=== PATIENT | female | born 1980 | race Two or more races ===

== ENCOUNTER 2018-04-13 12:39 | Inpatient (IN) | payer MEDICAID ==
[2018-04-14] MEDS ORDERED: Sodium Chloride 0.9% 10 ML Syringe FLUSH PRN (02:46)
[2018-04-14] MEDS ORDERED: ceFAZolin 2 GM in Premix Bag 1 BAG IV ONE (02:46)
[2018-04-14] MEDS ORDERED: Citric Acid/Sodium Citrate Solution 30 ML Cup PO ONE (02:46)
[2018-04-14] MEDS ORDERED: Metoclopramide 10 MG/2 ML SDV IVPUSH ONE (02:46)
[2018-04-14] MEDS ORDERED: Nalbuphine 20 MG/ML 1 ML Syringe IVPUSH PRN (02:46)
[2018-04-14] MEDS ORDERED: Oxytocin/Lactated Ringers 10 UNIT/1,000 ML BAG IV SCH ×2 (03:00→10:30)
[2018-04-14] MEDS ORDERED: Oxytocin 10 Units/1 ML SDV ONE ×2 (07:42→07:44)
[2018-04-14] MEDS ORDERED: Ondansetron 4 MG/2 ML SDV ONE (07:42)
[2018-04-14] MEDS ORDERED: Ketorolac 30 MG/ML SDV ONE (07:42)
[2018-04-14] MEDS ORDERED: Lactated Ringers 2,000 ML ONE (07:42)
[2018-04-14] MEDS ORDERED: Morphine PF 1 MG/ML Amp ONE (07:42)
[2018-04-14] MEDS ORDERED: ceFAZolin 1 GM Vial ONE (07:42)
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
--- NOTE | 2018-04-14 08:09 | PCM.PREANE ---
Preanesthetic Assessment - Procedure Proposed Procedure: c section - Anesthesia/Transfusion/Family Hx Anesthesia History: Prior Anesthesia Without Reaction Family History of Anesthesia Reaction: No Transfusion History: No Prior Transfusion(s) - Review of Systems General: No Symptoms Pulmonary: No Symptoms Cardiovascular: No Symptoms Gastrointestinal: No Symptoms Neurological: No Symptoms Other: Reports: Depression, Anxiety - Physical Assessment NPO Status Date: 04/13/18 NPO Status Time: 06:00 Respiratory Rate: 18 Vital Signs: Last Vital Signs Temp 97.7 F 04/13/18 13:15 Pulse 97 04/13/18 13:15 Resp 18 04/13/18 13:15 BP 138/90 04/13/18 13:15 Pulse Ox Height: 5 ft 2 in Weight: 79.379 kg ASA Class: 2 Mental Status: Alert & Oriented x3 Airway Class: Mallampati = 1 Dentition: Reports: Normal Dentition Thyro-Mental Finger Breadths: 3 Mouth Opening Finger Breadths: 3 ROM/Head Extension: Full Lungs: Clear to Auscultation, Normal Respiratory Effort Cardiovascular: Regular Rate, Regular Rhythm - Lab Values: Laboratory Last Values Blood Type B POSITIVE 04/13/18 12:00 Gel Antibody Screen Negative 04/13/18 12:00 - Allergies Allergies/Adverse Reactions: Allergies Allergy/AdvReac Type Severity Reaction Status Date / Time No Known Allergies Allergy Verified 04/13/18 13:46 - Blood Blood Available: No - Acknowledgements Anesthesia Type Planned: Spinal Pt an Appropriate Candidate for the Planned Anesthesia: Yes Alternatives and Risks of Anesthesia Discussed w Pt/Guardian: Yes Pt/Guardian Understands and Agrees with Anesthesia Plan: Yes PreAnesthesia Questionnaire HEENT History: Reports: Other (See Below) (wears glasses) Cardiovascular History: Reports: None, Hypertension ( induced) Respiratory History: Reports: None Gastrointestinal History: Reports: GERD (with preg) ELIGIBILITY SERVICES REPRESENTATIVE History: Reports: , Spontaneous : 4 (37.2 weeks) Para: 2 Musculoskeletal History: Reports: Fibromyalgia Neurological History: Reports: Migraines Psychiatric History: Reports: Anxiety, Depression Oncologic (Cancer) History: Reports: None - Past Surgical History HEENT Surgical History: Reports: Oral Surgery Musculoskeletal Surgical History: Reports: Carpal Tunnel, Other (See Below) ( cubital surgery right) - SUBSTANCE USE Smoking Status *Q: Never Smoker Tobacco Use Within Last Twelve Months: No Second Hand Smoke Exposure: Yes Days Per Week of Alcohol Use: 0 Recreational Drug Use History: No - HOME MEDS Home Medications: Home Meds DULoxetine [Cymbalta] 60 mg PO DAILY 04/13/18 [History] PNV95/Ferrous Fumarate/FA [ Tablet] 1 tab PO DAILY 04/13/18 [History] Pregabalin [Lyrica] 300 mg PO DAILY 04/13/18 [History] - CURRENT (IN HOUSE) MEDS Current Meds: Current Medications Lactated Ringer's (Ringers, Lactated) 1,000 mls @ 125 mls/hr IV ASDIRECTED GLENNA Oxytocin/Lactated Ringer's (Pitocin In Lr 10 Units/1,000 Ml) 10 unit in 1,000 mls @ 100 mls/hr IV ASDIRECTED GLENNA Nalbuphine HCl (Nubain) 10 mg IVPUSH Q2H PRN PRN Reason: pain Sodium Chloride (Saline Flush) 10 ml FLUSH ASDIRECTED PRN PRN Reason: Keep Vein Open Discontinued Medications Cefazolin Sodium (Ancef) Confirm Administered Dose 2 gm .ROUTE .STK-MED ONE Stop: 04/14/18 07:43 Citric Acid/Sodium Citrate (Bicitra Solution) 30 ml PO ONETIME ONE Stop: 04/14/18 02:47 Cefazolin Sodium/Dextrose 2 gm (/ Premix) 50 mls @ 100 mls/hr IV ONETIME ONE Stop: 04/14/18 03:15 Lactated Ringer's (Ringers, Lactated) Confirm Administered Dose 2,000 mls @ as directed .ROUTE .STK-MED ONE Stop: 04/14/18 07:43 Ketorolac Tromethamine (Toradol) Confirm Administered Dose 30 mg .ROUTE .STK- MED ONE Stop: 04/14/18 07:43 Metoclopramide HCl (Reglan) 10 mg IVPUSH ONETIME ONE Stop: 04/14/18 02:47 Morphine Sulfate (Duramorph Pf) Confirm Administered Dose 1 mg .ROUTE .STK-MED ONE Stop: 04/14/18 07:43 Ondansetron HCl (Zofran) Confirm Administered Dose 4 mg .ROUTE .STK-MED ONE Stop: 04/14/18 07:43 Oxytocin (Pitocin) Confirm Administered Dose 10 unit .ROUTE .STK-MED ONE Stop: 04/14/18 07:43 Oxytocin (Pitocin) Confirm Administered Dose 10 unit .ROUTE .[facility]-MED ONE Stop: 04/14/18 07:45
[2018-04-14] MEDS: Lactated Ringers 1,000 ML IV SCH ×3 (08:51→14:07)
[2018-04-14] MEDS ORDERED: Terbutaline 1 MG/ML SDV ONE (09:44)
[2018-04-14] MEDS ORDERED: Bupivacaine 0.25% 10 ML SDV ONE (10:00)
[2018-04-14] MEDS ORDERED: Lidocaine 1.5% with EPINEPHrine 1:200,000 5 ML Amp ONE (10:00)
--- NOTE | 2018-04-14 11:28 | PCM.SN ---
- Free Text/Narrative Note: Procedure note: Discussion is held early this a.m. concerning alternatives of care regarding elevated blood pressures in along with breech presentation. Patient is reassessed with ultrasound and baby persisted in a breech presentation with head to the left upper quadrant and back to the left. Option of external cephalic version, its risks, benefits, success and failure rate along with inability to absolutely guarantee a successful and safe vaginal delivery are all discussed with patient. The risks and benefits of section for both mom and baby are also again discussed. Patient appears to understand the discussion the risks, benefits and is interested in pursuing an attempt at external cephalic version. Consent is signed. Timeout was performed prior to the procedure. After consent for and for external cephalic version is signed and timeout was performed Allis and underwent an attempt at external cephalic version. She previously had had an IV placed. The heart tones were reassuring with reactive nonstress test. No significant contractions were noted. Cervix was assessed and her cervix was found be 2 cm dilated, 80% effaced soft, very high presenting part not palpable in the pelvis by vaginal exam. Cervix is mid position. Bag of romero intact. Ultrasound again showed the head and left upper quadrant with back to the left. Patient was given 0.25 mg of terbutaline diluted to 5 mL via IV over approximately 5 minutes. Ultrasound documentation of adequate heart rate the patient underwent external cephalic version. With external pressure the head was brought counterclockwise to the patient's right side from the left upper quadrant and the breech was brought cephalad around the left side. Patient experienced moderate discomfort with this but tolerated it well. She did report increased heart rate from the terbutaline. The external cephalic version was successful and the baby's head was brought down into the pelvis. Amniotic fluid volume it should be noted was adequate prior to the attempt. Patient was then administered Pitocin IV starting at 4 mU/mL in order to increase the tone within the uterus and decrease likelihood of baby's return to a breech presentation. Vaginal exam was performed. Cervix was unchanged from previous evaluation but the baby's head was found to be present within the pelvis at a -3 station. Patient tolerated procedure well, heart tones were reassuring after the external cephalic version.
[2018-04-14] MEDS ORDERED: diphenhydrAMINE 50 MG/ML SDV IVPUSH PRN (13:30)
[2018-04-14] MEDS ORDERED: fentaNYL/Bupivacaine-NS 2 MCG/ML-0.125%/PF 100 ML Bag EP SCH (13:30)
[2018-04-14] MEDS ORDERED: fentaNYL 100 MCG/2 ML SDV EPIDUR PRN (13:30)
[2018-04-14] MEDS ORDERED: ePHEDrine 50 MG/ML SDV IVPUSH PRN (13:30)
--- NOTE | 2018-04-14 18:00 | PCM.SN ---
- Free Text/Narrative Note: Delivery note: Jadyn is a 37-year-old 3 now para 3003 white female who is admitted last night at 37-2/7 weeks gestational age with diagnosis of hypertension in . Blood pressures running in the 155 systolic over 90-105 diastolic range. Patient is mildly hyperreflexic. Uric acid 4.6. Serum was made to admit, offered either a primary section or external cephalic version with induction of labor as patient's baby was in a nish breech presentation with head in left upper quadrant. Patient decided on attempt at external start version. This was undertaken under ultrasound guidance. This was successful. Please see previous note. Patient then underwent induction of labor with Pitocin and eventually artificial rupture membranes. She had an epidural for labor and analgesia. She progressed well and became completely dilated at approximately 1631 hrs. Patient then pushed for approximately 1.5 hours and after becoming somewhat fatigued decided to undergo a vacuum extraction delivery. Vacuum extraction was performed. In the course of 2 contractions patient delivered the baby in a direct occiput anterior position. A first-degree perineal laceration occurred. This was repaired with 3-0 Monocryl suture with one [id number] suture. Pitocin was started at the time of delivery to facilitate increase uterine tone and decreased likelihood of bleeding. Dr. Thomas, stone cleaner, was in attendance at time of delivery because of very mildly meconium stained amniotic fluid. Cord blood was obtained. The umbilical cord had 3 vessels. The baby weighed 2870 g (6 pounds 5.2 ounces), was 18-1/2 inches in length and had Apgars of 8 and 9. The baby was taken to the warmer for Dr. Thomas's attention. The placenta delivered intact in a Thorpe presentation, appeared intact and complete and was discarded per patient desire. Estimated blood loss was 100 mL. Condition: Good. Patient plans to breast feed.
[2018-04-14] MEDS ORDERED: Acetaminophen 325 MG Tab PO PRN (18:26)
[2018-04-14] MEDS ORDERED: Docusate Sodium 100 MG Cap PO PRN (18:26)
[2018-04-14] MEDS ORDERED: Benzocaine/Menthol 20%-0.5% Spray 56 GM Canister TOP PRN (18:26)
[2018-04-14] MEDS ORDERED: Lanolin 100% Cream 7 GM Tube TOP PRN (18:26)
[2018-04-14] MEDS ORDERED: Witch Hazel Medicated Pads 100/Jar TOP PRN (18:26)
[2018-04-15] MEDS: Ibuprofen 600 MG Tab PO PRN ×3 (02:15→21:06)
--- NOTE | 2018-04-15 07:44 | PCM48HPAN ---
Post Anesthesia Note - EVALUATION WITHIN 48HRS OF ANESTHETIC Vital Signs in Normal Range: Yes Patient Participated in Evaluation: Yes Respiratory Function Stable: Yes Airway Patent: Yes Cardiovascular Function Stable: Yes Hydration Status Stable: Yes Pain Control Satisfactory: Yes Nausea and Vomiting Control Satisfactory: Yes Mental Status Recovered: Yes
--- NOTE | 2018-04-15 20:28 | PCM.SN ---
- Free Text/Narrative Note: note: Patient is doing well in the period. Minimal lochia, voiding well, ambulated without problems. Nursing without concerns. Patient denies any symptoms of headaches or other preeclampsia associated concerns. Patient is afebrile, vital signs are stable. Patient's blood pressures started about higher and now decreased during the course of the day. Abdomen is flat, soft, uterus is below the umbilicus and is firm and nontender. Legs are nontender. Assessment: 1. Preeclampsia without severe features-delivered 2. recovery going well. Plan: Routine care. Patient be discharged home within the next 24-48 hours.We'll monitor blood pressures closely over the next 24-36 hours.
[2018-04-16] MEDS: Ibuprofen 600 MG Tab PO PRN ×3 (02:18→11:25)
--- NOTE | 2018-04-16 05:08 | PCM.DCSUM1 ---
Discharge Summary - Hospital Course Free Text/Narrative:: Jadyn is a 37-year-old 3 now para 3003 white female who is admitted on 04/14/2018 at 37-2/7 weeks gestational age with diagnosis of hypertension in . Blood pressures running in the 155 systolic over 90-105 diastolic range. Patient is mildly hyperreflexic. Uric acid 4.6. Serum was made to admit, offered either a primary section or external cephalic version with induction of labor as patient's baby was in a nish breech presentation with head in left upper quadrant. Patient decided on attempt at external start version. This was undertaken under ultrasound guidance. This was successful. Please see previous note. Patient then underwent induction of labor with Pitocin and eventually artificial rupture membranes. She had an epidural for labor and analgesia. She progressed well and became completely dilated at approximately 1631 hrs. Patient then pushed for approximately 1.5 hours and after becoming somewhat fatigued decided to undergo a vacuum extraction delivery. Vacuum extraction was performed. In the course of 2 contractions patient delivered the baby in a direct occiput anterior position. A first-degree perineal laceration occurred. This was repaired with 3-0 Monocryl suture with one [id number] suture. Pitocin was started at the time of delivery to facilitate increase uterine tone and decreased likelihood of bleeding. Dr. Thomas, stonemason, was in attendance at time of delivery because of very mildly meconium stained amniotic fluid. Cord blood was obtained. The umbilical cord had 3 vessels. The baby weighed 2870 g (6 pounds 5.2 ounces), was 18-1/2 inches in length and had Apgars of 8 and 9. The baby was taken to the warmer for Dr. Thomas's attention. The placenta delivered intact in a Thorpe presentation, appeared intact and complete and was discarded per patient desire. Estimated blood loss was 100 mL. Condition: Good. Patient plans to breast feed. patient's blood pressures running in the 140/90 range end of been stable. Her reflexes are slightly decreased in intensity. Patient is feeling fine without any symptoms. Her lochia is minimal, she is voiding well and she is ambulating without problems. She is desiring discharge home. Admission and hospital findings clinically consistent with preeclampsia without severe features. Diagnosis: Stroke: No - Discharge Data Discharge Date: 04/16/18 Discharge Disposition: Home, Self-Care 01 Condition: Good - Patient Instructions Diet: Regular Diet as Tolerated (Nursing diet with increase calories and calcium as recommended) Activity: As Tolerated (No intercourse or tampons until bleeding resolves) Driving: Do Not Drive (2 days) Showering/Bathing: May Shower (Or take a bath) Notify Provider of: Fever, Increased Pain, Swelling and Redness, Nausea and/or Vomiting - Discharge Plan Home Medications: Home Meds DULoxetine [Cymbalta] 60 mg PO DAILY 04/13/18 [History] PNV95/Ferrous Fumarate/FA [ Tablet] 1 tab PO DAILY 04/13/18 [History] Acetaminophen [Tylenol] 650 mg PO Q4H PRN tablet 04/16/18 [Rx] Ibuprofen [Motrin] 600 mg PO Q4H PRN tablet 04/16/18 [Rx] Arianne Magana [Tucks] 1 pad TOP ASDIRECTED PRN pad 04/16/18 [Rx] - Discharge Summary/Plan Comment DC Time >30 min.: No Discharge Summary/Plan Comment: Discharge instructions: 1. Discharge home 2. Diet, activity and follow-up discussed with patient. Recommend nursing diet with increased calories and calcium. 3. Precautions given concern increased pain, bleeding, temperature, signs/ symptoms of DVT/PE. 4. Medications per home medication was printed, discussed with and given to the patient. 5. Return to clinic-[facility]. [facility] in 1 weeks. Diagnosis: 1. Preeclampsia without severe features 2. Term -delivered at 37-2/7 weeks Condition: Good - Patient Data Vitals - Most Recent: Last Vital Signs Temp 36.9 C 04/15/18 21:09 Pulse 100 04/15/18 21:09 Resp 14 04/15/18 21:09 BP 138/90 04/15/18 21:09 Pulse Ox 97 04/15/18 21:09 Weight - Most Recent: 79.379 kg I&O - Last 24 hours: Intake & Output 04/15/18 04/15/18 04/16/18 14:59 22:59 06:59 Intake Total 480 Balance 480 Med Orders - Current: Current Medications Acetaminophen (Tylenol) 650 mg PO Q4H PRN PRN Reason: mild pain or fever Benzocaine/Menthol (Dermoplast Pain Relief [place]) 0 gm TOP ASDIRECTED PRN PRN Reason: Perineal Comfort Measure Last Admin: 04/15/18 02:15 Dose: 1 canister Docusate Sodium (Colace) 100 mg PO BID PRN PRN Reason: Constipation Emollient Ointment (Lansinoh Hpa) 0 gm TOP ASDIRECTED PRN PRN Reason: Sore Nipples Ibuprofen (Motrin) 600 mg PO Q4H PRN PRN Reason: Mild pain or fever Last Admin: 04/16/18 02:18 Dose: 600 mg Witch Izzy (Tucks) 1 pad TOP ASDIRECTED PRN PRN Reason: Hemorrhoid pain Discontinued Medications Bupivacaine HCl (Sensorcaine-Mpf 0.25%) 10 ml .ROUTE .STK-MED ONE Stop: 04/14/18 10:01 Diphenhydramine HCl (Benadryl) 25 mg IVPUSH Q6H PRN PRN Reason: pruritis Last Admin: 04/14/18 15:45 Dose: 25 mg Fentanyl (Sublimaze) 100 mcg EPIDUR Q3H PRN PRN Reason: Pain Last Admin: 04/14/18 14:29 Dose: 100 mcg Fentanyl/Bupivacaine HCl (Dujkvmwy-Sfuku-Lh 2 Mcg/Ml-0.125%) 100 ml EP ASDIRECTED GLENNA Last Admin: 04/14/18 14:29 Dose: 100 ml Lactated Ringer's (Ringers, Lactated) 1,000 mls @ 125 mls/hr IV ASDIRECTED [facility] Last Admin: 04/14/18 14:07 Dose: 125 mls/hr Oxytocin/Lactated Ringer's (Pitocin In Lr 10 Units/1,000 Ml) 10 unit in 1,000 mls @ 100 mls/hr IV ASDIRECTED GLENNA Last Admin: 04/14/18 10:30 Dose: 100 mls/hr Oxytocin/Lactated Ringer's (Pitocin In Lr 10 Units/1,000 Ml) 10 unit in 1,000 mls @ 24 mls/hr IV TITRATE GLENNA; Protocol Last Titration: 04/14/18 13:05 Dose: 8 munits/min, 48 mls/hr Lidocaine/Epinephrine (Xylocaine-Mpf 1.5% W/Epinephrine 1:200,000) 5 ml .ROUTE .STK-MED ONE Stop: 04/14/18 10:01 Terbutaline Sulfate (Brethine) Confirm Administered Dose 1 mg .ROUTE .STK-MED ONE Stop: 04/14/18 09:45 Last Admin: 04/14/18 09:49 Dose: 0.25 mg
== END 2018-04-16 15:15 | disposition home or self-care (01) | DRG 806 ==
LOC: JD.OBCHECK 12:39 → JD.OB 12:41 → JD.OBCHECK 04-14 04:35 → JD.OB 04-14 04:40 → UNDOADMOB 04-14 04:40 → INTOOBSV 04-14 04:40 → JD.OB 04-14 08:00 → OBSVTOIN 04-14 17:35 → JD.OB 04-14 17:36
PROVIDERS: ADMIT Obstetrics & Gynecology; ATTEND Obstetrics & Gynecology
PROC: 6A550ZT Pheresis of Cord Blood Stem Cells, Single (ICD-10-PCS; principal; 2018-04-14)
PROC: 10D07Z6 Extraction of Products of Conception, Vacuum, Via Natural or Artificial Opening (ICD-10-PCS; principal; 2018-04-14)
PROC: 10907ZC Drainage of Amniotic Fluid, Therapeutic from Products of Conception, Via Natural or Artificial Opening (ICD-10-PCS; principal; 2018-04-14)
PROC: 0HQ9XZZ Repair Perineum Skin, External Approach (ICD-10-PCS; principal; 2018-04-14)
PROC: 3E033VJ Introduction of Other Hormone into Peripheral Vein, Percutaneous Approach (ICD-10-PCS; principal; 2018-04-14)
PROC: 10S0XZZ Reposition Products of Conception, External Approach (ICD-10-PCS; 2018-04-14)
PROC: 3E0R3BZ Introduction of Anesthetic Agent into Spinal Canal, Percutaneous Approach (ICD-10-PCS; 2018-04-14)
PROC: 00HU33Z Insertion of Infusion Device into Spinal Canal, Percutaneous Approach (ICD-10-PCS; 2018-04-14)
DX: O13.4 Gestational [pregnancy-induced] hypertension without significant proteinuria, complicating childbirth (principal); O98.32 Other infections with a predominantly sexual mode of transmission complicating childbirth; Z37.0 Single live birth; O99.354 Diseases of the nervous system complicating childbirth; G43.909 Migraine, unspecified, not intractable, without status migrainosus; A60.00 Herpesviral infection of urogenital system, unspecified; O75.81 Maternal exhaustion complicating labor and delivery; O32.1XX0 Maternal care for breech presentation, not applicable or unspecified; O70.0 First degree perineal laceration during delivery; O77.0 Labor and delivery complicated by meconium in amniotic fluid; Z3A.37 37 weeks gestation of pregnancy; O14.94 Unspecified pre-eclampsia, complicating childbirth; O75.89 Other specified complications of labor and delivery; M79.7 Fibromyalgia; O99.344 Other mental disorders complicating childbirth; F32.9 Major depressive disorder, single episode, unspecified; Z79.899 Other long term (current) drug therapy; F41.9 Anxiety disorder, unspecified; O99.62 Diseases of the digestive system complicating childbirth; K21.9 Gastro-esophageal reflux disease without esophagitis
CPT/HCPCS: 36415; 51701; 59025; 59409; 86850; 86900; 86901; A9270-GY; J0690; J1200; J1885; J2274; J2405; J2590; J3010; J3105; J3490; J7120

== ENCOUNTER 2022-04-15 18:10 | Emergency (ER) | payer MEDICAID | END 2022-04-15 20:12 | disposition home or self-care (01) | LOC: JD.ED 18:10 | DX: S60.211A Contusion of right wrist, initial encounter (principal); I10 Essential (primary) hypertension; Z91.010 Allergy to peanuts; W00.0XXA Fall on same level due to ice and snow, initial encounter | CPT/HCPCS: 73110-26-RT; 73110-RT; 99283 ==